=== PATIENT | female | born 1960 | race Caucasian/White ===

== ENCOUNTER 2024-04-03 08:05 | Outpatient (CLI) | payer BC | END 2024-04-03 08:06 | disposition home or self-care (01) | LOC: NM 08:05 | PROVIDERS: ATTEND Physician Assistant Medical | DX: K76.0 Fatty (change of) liver, not elsewhere classified (principal); R14.2 Eructation; R63.4 Abnormal weight loss; R07.89 Other chest pain; R11.0 Nausea | CPT/HCPCS: 78264; A9541 ==